=== PATIENT | male | born 1960 | race Caucasian/White ===

== ENCOUNTER 2017-03-13 08:43 | Emergency (ER) | payer BC ==
[~2017-03-13] VITALS: Ht 170.2 cm; Wt 86.4 kg
[~2017-03-13 08:43] MED LIST: ALTACE 10MG TAB10 MG PO; ASPIRIN 32325 MG/TAB PO; COREG CR20 MG PO; FLAX OIL1000 MG PO; LIPITOR20 MG PO; PROSCAR 5MG5 MG PO; ZETIA 10MG TAB10 MG PO
[2017-03-13 08:47] VITALS: TEMP 98
[2017-03-13] MEDS ORDERED: ZITHROMAX 250M250 MG PO (08:50)
[2017-03-13 10:42] VITALS: BP 139/96; PULSE 85
== END 2017-03-13 10:43 | disposition home or self-care (01) ==
LOC: COL.ER 08:43
DX: R04.0 Epistaxis (principal); I10 Essential (primary) hypertension; Z79.82 Long term (current) use of aspirin